=== PATIENT | female | born 1940 | race Caucasian/White ===

== ENCOUNTER 2020-07-07 00:46 | Emergency (ER) | payer MEDICARE ==
[~2020-07-07] VITALS: Ht 157.5 cm; Wt 43.5 kg
[2020-07-07 00:49] VITALS: BP_SYST 169
[2020-07-07] MEDS ORDERED: MORPHINE 2 MG/ML INJ. SYRINGE IVP ONE (02:00)
[2020-07-07 02:15] LABS: BASOPHILS % (AUTO) 0.4 % (0.0-2.0); EOSINOPHILS # (AUTO) 0.1 K/uL (0.0-0.4); EOSINOPHILS % (AUTO) 1.5 % (0.0-4.0); HEMATOCRIT 37.3 % (36-48); HEMOGLOBIN 12.5 g/dL (12.0-16.0); LYMPHOCYTES # (AUTO) 1.3 K/uL (1.0-5.5); LYMPHOCYTES % (AUTO) 15.6 % (20.5-51.5); MEAN CORPUSCULAR HEMOGLOBIN 31 pg (27-31); MEAN CORPUSCULAR HGB CONC 34 % (32-36); MEAN CORPUSCULAR VOLUME 93 fL (79.0-98.0); MONOCYTES # (AUTO) 0.6 K/uL (0.0-1.0); MONOCYTES % (AUTO) 6.9 % (1.7-9.3); NEUTROPHILS # (AUTO) 6.2 K/uL (1.8-7.7); NEUTROPHILS % (AUTO) 75.6 % (40.0-70.0); PLATELET COUNT (AUTO) 300 K/uL (130-430); WHITE BLOOD COUNT (AUTO) 8.2 K/uL (4.8-10.8)
[2020-07-07] MEDS ORDERED: fentaNYL CITRATE/PF 100 MCG/2 ML AMP IVP ONE (02:15)
[2020-07-07 02:26] LABS: ANION GAP 8 (5-15); CHLORIDE 106 mmol/L (98-107); CREATININE 0.57 mg/dL (0.55-1.30); GLUCOSE 100 mg/dL (70-99); POTASSIUM 3.7 mmol/L (3.5-5.1); SODIUM SERUM 143 mmol/L (136-145); UREA NITROGEN, BLOOD 21 mg/dL (8-21)
[2020-07-07 02:38] LABS: PROTHROMBIN TIME 10.5 SECS (9.5-12.5)
[2020-07-07 02:39] LABS: ALANINE AMINOTRANSFERASE 21 U/L (12-78); ALBUMIN 3.8 g/dL (3.4-4.8); ASPARTATE AMINOTRANSFERASE 24 U/L (10-37); LIPASE 96 U/L (73-393); TOTAL BILIRUBIN 0.5 mg/dL (0.0-1.0)
[2020-07-07] MEDS ORDERED: NALOXONE HCL 2 MG/2 ML SYR ONE (04:05)
[2020-07-07 04:34] VITALS: BP_SYST 142
== END 2020-07-07 04:46 | disposition short-term general hospital (02) ==
LOC: SED 00:46
DX: S72.002A Fracture of unspecified part of neck of left femur, initial encounter for closed fracture (principal); Z20.822 Contact with and (suspected) exposure to COVID-19; W18.39XA Other fall on same level, initial encounter; Y93.89 Activity, other specified; Y92.89 Other specified places as the place of occurrence of the external cause; Y99.8 Other external cause status
CPT/HCPCS: 36415; 72170; 73502; 80053; 83690; 85025; 85610; 85730; 87426; 96374; 96375; 99285; J2270; J2310; J3010